=== PATIENT | female | born 1940 | race Caucasian/White ===

== ENCOUNTER → 2016-07-08 | Outpatient (CLI) | payer MEDICARE, MEDICAID ==
[~2016-07-08] MED LIST: /WARF25TA; ACET65TA; ALLO100T; ALLO100T PO; AMLO10TA2 PO; ASPI1TAB PO; ASPI325T PO; ASPI81TA83; BABY81CH; BISA10SU2; BISA5TA; CALC500T49; CALC600T28 PO; CALCCHW12; CARV3.12 PO; COLA100C2; DILA100C; FURO20TA2 PO; FURO40TA2; GLIP5TAB2; GLIP5TAB8 PO; GLUC500T; GLUC5TAB3; HYDR25TA6; HYDR50TA7; LASI40TA; LEVO100T; LEVO100T5 PO; LOPR50TA; LOVA20TA2 PO; LOVA40TA; METF1000 PO; METF500T PO; MILKSUS; POTA10CA2; POTA20TA PO; PRIN10TA; SPECTROVITE; THERGRAN; TYL; VICO5TAB; VITMTA PO; ZYLO300T
--- NOTE | 2016-07-08 11:43 | REP ---
CT HEAD WITHOUT CONTRAST: HISTORY: Hippocampal lesion. COMPARISON: 08/25/2015. An area of decreased attenuation is present in the right basal ganglia. This represents an old lacunar infarction. Areas of decreased attenuation are present in the periventricular white matter. This represents small vessel ischemic disease. Increased density is present in the right hippocampus that is unchanged compared to the previous study. There is no mass effect on the temporal horn of the right lateral ventricle. The ventricular system and cortical sulci are dilated consistent with minimal volume loss. There is no extracerebral collection. Mucosal thickening is present in the ethmoid sinuses. IMPRESSION: 1. Old right basal ganglia lacunar infarction. 2. Small vessel ischemic disease. 3. Minimal volume loss. 4. There is increased density in the right hippocampus, unchanged compared to the previous study. This represents calcification, hemosiderin or possibly a cavernous hemangioma. Signed by Bryant Ann MD 07/08/2016 12:06 P
== END ==
LOC: M RAD 11:00
PROVIDERS: ATTEND Psychiatry & Neurology Neurology
DX: G93.9 Disorder of brain, unspecified (principal)

== ENCOUNTER → 2016-07-15 | Outpatient (REF) | payer MEDICARE, MEDICAID | LOC: M SFHCADAM 11:16 | PROVIDERS: ATTEND Family Medicine | DX: E11.9 Type 2 diabetes mellitus without complications (principal) | CPT/HCPCS: 82043; 83036; G0463 ==

== ENCOUNTER → 2016-08-11 | Outpatient (CLI) | payer MEDICARE, MEDICAID ==
[2016-08-11 10:13] LABS: CALCIUM LEVEL 9.7 MG/DL (8.8-10.2); CREATININE FOR GFR 1.94 MG/DL (0.55-1.02); GLOMERULAR FILTRATION RATE 26.8 (>39)
== END ==
LOC: M LAB 09:27
PROVIDERS: ATTEND Urology
DX: C64.1 Malignant neoplasm of right kidney, except renal pelvis (principal)

== ENCOUNTER → 2016-10-12 | Outpatient (CLI) | payer MEDICARE, MEDICAID | LOC: M LAB 09:10 | PROVIDERS: ATTEND Family Medicine | DX: E11.9 Type 2 diabetes mellitus without complications (principal) ==

== ENCOUNTER → 2016-12-31 | Outpatient (CLI) | payer MEDICARE, MEDICAID ==
[~2016-12-31] MED LIST changes: -METF1000 PO; +METF10004 PO; -METF500T PO; +METF500T13 PO
[2016-12-31 08:45] LABS: ALBUMIN 3.7 GM/DL (3.2-5.2); ALBUMIN/GLOBULIN RATIO 1.23 (1.00-1.93); BILIRUBIN,TOTAL 0.5 MG/DL (0.2-1.0); CREATININE FOR GFR 1.7 MG/DL (0.55-1.02); GLOMERULAR FILTRATION RATE 31.2 (>39); POTASSIUM SERUM 4.4 MEQ/L (3.5-5.1); TOTAL PROTEIN 6.7 GM/DL (6.4-8.2)
== END ==
LOC: M LAB 07:56
PROVIDERS: ATTEND Physician Assistant
DX: I50.32 Chronic diastolic (congestive) heart failure (principal); E78.00 Pure hypercholesterolemia, unspecified

== ENCOUNTER → 2017-01-24 | Outpatient (REF) | payer MEDICARE, MEDICAID | LOC: M SFHCADAM 10:24 | PROVIDERS: ATTEND Family Medicine | DX: E11.9 Type 2 diabetes mellitus without complications (principal) ==

== ENCOUNTER → 2017-02-14 | Outpatient (CLI) | payer MEDICARE, MEDICAID ==
[2017-02-14 12:18] LABS: CALCIUM LEVEL 8.6 MG/DL (8.8-10.2); CREATININE FOR GFR 1.84 MG/DL (0.55-1.02); GLOMERULAR FILTRATION RATE 28.5 (>39); POTASSIUM SERUM 4.3 MEQ/L (3.5-5.1)
== END ==
LOC: M LAB 09:58
PROVIDERS: ATTEND Urology
DX: C64.1 Malignant neoplasm of right kidney, except renal pelvis (principal)

== ENCOUNTER → 2017-04-01 | Outpatient (REF) | payer MEDICARE, MEDICAID ==
[2017-04-01 13:44] LABS: ALBUMIN 4.1 GM/DL (3.2-5.2); CALCIUM LEVEL 9.4 MG/DL (8.8-10.2); CREATININE FOR GFR 1.87 MG/DL (0.55-1.02); GLOMERULAR FILTRATION RATE 27.9 (>39); PHOSPHORUS LEVEL 2.9 MG/DL (2.5-4.9)
== END ==
LOC: M LAB REF 12:53
PROVIDERS: ATTEND Physician Assistant
DX: I50.32 Chronic diastolic (congestive) heart failure (principal)

== ENCOUNTER → 2017-05-09 | Outpatient (REF) | payer MEDICARE, MEDICAID | LOC: M SFHCADAM 09:35 | PROVIDERS: ATTEND Family Medicine | DX: E11.9 Type 2 diabetes mellitus without complications (principal) ==

== ENCOUNTER → 2017-07-06 | Outpatient (REF) | payer MEDICARE, MEDICAID ==
[2017-07-06 12:54] LABS: ALBUMIN 4.4 GM/DL (3.2-5.2); ALBUMIN/GLOBULIN RATIO 1.42 (1.00-1.93); ALKALINE PHOSPHATASE 93 U/L (45-117); ALT/SGPT 18 U/L (12-78); ANION GAP 6 MEQ/L (8-16); AST/SGOT 14 U/L (7-37); BILIRUBIN,TOTAL 0.4 MG/DL (0.2-1.0); BLOOD UREA NITROGEN 36 MG/DL (7-18); CALCIUM LEVEL 9.5 MG/DL (8.8-10.2); CARBON DIOXIDE LEVEL 32 MEQ/L (21-32); CHLORIDE LEVEL 101 MEQ/L (98-107); CREATININE FOR GFR 1.94 MG/DL (0.55-1.02); GLOMERULAR FILTRATION RATE 26.7 (>39); GLUCOSE, FASTING 131 MG/DL (83-110); POTASSIUM SERUM 4.6 MEQ/L (3.5-5.1); SODIUM LEVEL 139 MEQ/L (136-145); TOTAL PROTEIN 7.5 GM/DL (6.4-8.2)
== END ==
LOC: M LABDRWAD 12:27
DX: I50.32 Chronic diastolic (congestive) heart failure (principal); E78.00 Pure hypercholesterolemia, unspecified
CPT/HCPCS: 80053

== ENCOUNTER → 2017-07-14 | Outpatient (CLI) | payer MEDICARE, MEDICAID | LOC: M ADAMS 13:27 | DX: M17.12 Unilateral primary osteoarthritis, left knee (principal) | CPT/HCPCS: 73564 ==

== ENCOUNTER → 2017-08-12 | Outpatient (REF) | payer MEDICARE, MEDICAID ==
[2017-08-12 20:10] LABS: ESTIMATED AVERAGE GLUCOSE 143 MG/DL (60-110); HEMOGLOBIN A1c 6.6 %
== END ==
LOC: M SFHCADAM 19:30
DX: E11.9 Type 2 diabetes mellitus without complications (principal)
CPT/HCPCS: 83036

== ENCOUNTER → 2017-10-11 | Outpatient (CLI) | payer MEDICARE, MEDICAID | LOC: M RAD 12:45 | DX: I63.8 Other cerebral infarction (principal); I73.9 Peripheral vascular disease, unspecified; L98.9 Disorder of the skin and subcutaneous tissue, unspecified | CPT/HCPCS: 70450 ==

== ENCOUNTER → 2017-11-02 | Outpatient (REF) | payer MEDICARE, MEDICAID ==
[2017-11-02 12:54] LABS: BASO # 0.1 10^3/uL (0.0-0.2); BASO % 0.6 % (0.0-1.0); EOS # 0.2 10^3/uL (0.0-0.50); HEMATOCRIT 38.9 % (36.0-47.0); HEMOGLOBIN 12.5 g/dl (12.0-15.5); IMMATURE GRANULOCYTE % 0.6 % (0-3.0); LYMPH % 24.8 % (24.0-44.0); MEAN CORPUSCULAR HGB CONC 32.1 g/dl (32.0-36.5); MEAN CORPUSCULAR VOLUME 90.3 fl (80.0-96.0); MONO # 0.7 10^3/uL (0.0-0.8); MONO % 8.5 % (0.0-5.0); NEUTROPHILS % 62.5 % (36.0-66.0); PLATELET COUNT, AUTOMATED 193 10^3/uL (150-450); RED BLOOD COUNT 4.31 10^6/uL (4.00-5.40); RED CELL DISTRIBUTION WIDTH 13.2 % (11.5-14.5)
[2017-11-02 13:24] LABS: ALBUMIN 4.1 GM/DL (3.2-5.2); ALBUMIN/GLOBULIN RATIO 1.21 (1.00-1.93); ALKALINE PHOSPHATASE 88 U/L (45-117); ALT/SGPT 19 U/L (12-78); ANION GAP 6 MEQ/L (8-16); AST/SGOT 15 U/L (7-37); BILIRUBIN,TOTAL 0.5 MG/DL (0.2-1.0); BLOOD UREA NITROGEN 34 MG/DL (7-18); CALCIUM LEVEL 9.4 MG/DL (8.8-10.2); CARBON DIOXIDE LEVEL 32 MEQ/L (21-32); CHLORIDE LEVEL 104 MEQ/L (98-107); CREATININE FOR GFR 1.83 MG/DL (0.55-1.30); GLOMERULAR FILTRATION RATE 28.6 (>39); GLUCOSE, FASTING 125 MG/DL (70-100); POTASSIUM SERUM 4.5 MEQ/L (3.5-5.1); SODIUM LEVEL 142 MEQ/L (136-145); TOTAL PROTEIN 7.5 GM/DL (6.4-8.2)
[2017-11-02 13:56] LABS: ESTIMATED AVERAGE GLUCOSE 146 MG/DL (60-110); HEMOGLOBIN A1c 6.7 %
== END ==
LOC: M SFHCADAM 10:00
DX: E11.9 Type 2 diabetes mellitus without complications (principal)
CPT/HCPCS: 80053

== ENCOUNTER → 2017-12-30 | Outpatient (CLI) | payer MEDICARE, MEDICAID | LOC: M ADAMS 13:18 | DX: M79.651 Pain in right thigh (principal) | CPT/HCPCS: 73552 ==

== ENCOUNTER → 2018-02-03 | Outpatient (REF) | payer MEDICARE, MEDICAID ==
[2018-02-03 19:16] LABS: ALBUMIN 4.2 GM/DL (3.2-5.2); ALBUMIN/GLOBULIN RATIO 1.24 (1.00-1.93); ALKALINE PHOSPHATASE 109 U/L (45-117); ALT/SGPT 18 U/L (12-78); ANION GAP 6 MEQ/L (8-16); AST/SGOT 15 U/L (7-37); BILIRUBIN,TOTAL 0.3 MG/DL (0.2-1.0); BLOOD UREA NITROGEN 41 MG/DL (7-18); CALCIUM LEVEL 9.2 MG/DL (8.8-10.2); CARBON DIOXIDE LEVEL 33 MEQ/L (21-32); CHLORIDE LEVEL 104 MEQ/L (98-107); CREATININE FOR GFR 1.91 MG/DL (0.55-1.30); GLOMERULAR FILTRATION RATE 27.2 (>39); GLUCOSE, FASTING 149 MG/DL (70-100); POTASSIUM SERUM 3.9 MEQ/L (3.5-5.1); SODIUM LEVEL 143 MEQ/L (136-145); TOTAL PROTEIN 7.6 GM/DL (6.4-8.2)
[2018-02-03 19:22] LABS: ESTIMATED AVERAGE GLUCOSE 134 MG/DL (60-110); HEMOGLOBIN A1c 6.3 %
== END ==
LOC: M LABDRWAD 18:39
DX: E11.9 Type 2 diabetes mellitus without complications (principal)
CPT/HCPCS: 80053

== ENCOUNTER → 2018-02-27 | Outpatient (REF) | payer MEDICARE, MEDICAID ==
[2018-02-27 22:13] LABS: ANION GAP 7 MEQ/L (8-16); BLOOD UREA NITROGEN 32 MG/DL (7-18); CALCIUM LEVEL 9.5 MG/DL (8.8-10.2); CARBON DIOXIDE LEVEL 32 MEQ/L (21-32); CHLORIDE LEVEL 100 MEQ/L (98-107); CREATININE FOR GFR 1.77 MG/DL (0.55-1.30); GLOMERULAR FILTRATION RATE 29.7 (>39); GLUCOSE, FASTING 126 MG/DL (70-100); SODIUM LEVEL 139 MEQ/L (136-145); TRIGLYCERIDES LEVEL 172 MG/DL (<150)
[2018-02-27 23:25] LABS: CHOLESTEROL LEVEL 171 MG/DL (<200); CHOLESTEROL RISK RATIO 4.071 (<5); HDL CHOLESTEROL 42 MG/DL (>40); LDL CHOLESTEROL 94.6 MG/DL (<100); NON-HDL-C 129 MG/DL
== END ==
LOC: M LABDRWAD 12:21
DX: I50.32 Chronic diastolic (congestive) heart failure (principal); E78.00 Pure hypercholesterolemia, unspecified
CPT/HCPCS: 80061

== ENCOUNTER → 2018-03-08 | Outpatient (REF) | payer MEDICARE, MEDICAID ==
[2018-03-08 14:13] LABS: ANION GAP 10 MEQ/L (8-16); BLOOD UREA NITROGEN 31 MG/DL (7-18); CALCIUM LEVEL 9.3 MG/DL (8.8-10.2); CARBON DIOXIDE LEVEL 30 MEQ/L (21-32); CHLORIDE LEVEL 99 MEQ/L (98-107); CREATININE FOR GFR 1.76 MG/DL (0.55-1.30); GLOMERULAR FILTRATION RATE 29.9 (>39); GLUCOSE, FASTING 104 MG/DL (70-100); POTASSIUM SERUM 3.9 MEQ/L (3.5-5.1); SODIUM LEVEL 139 MEQ/L (136-145)
== END ==
LOC: M LABDRWAD 12:31
DX: N28.89 Other specified disorders of kidney and ureter (principal)
CPT/HCPCS: 80048

== ENCOUNTER → 2018-05-29 | Outpatient (REF) | payer MEDICARE, MEDICAID ==
[2018-05-29 13:00] LABS: ANION GAP 5 MEQ/L (8-16); BLOOD UREA NITROGEN 33 MG/DL (7-18); CALCIUM LEVEL 8.9 MG/DL (8.8-10.2); CARBON DIOXIDE LEVEL 29 MEQ/L (21-32); CHLORIDE LEVEL 104 MEQ/L (98-107); CREATININE FOR GFR 1.58 MG/DL (0.55-1.30); GLOMERULAR FILTRATION RATE 33.8 (>39); GLUCOSE, FASTING 123 MG/DL (70-100); POTASSIUM SERUM 5.1 MEQ/L (3.5-5.1); SODIUM LEVEL 138 MEQ/L (136-145)
== END ==
LOC: M LABDRWAD 12:28
DX: I50.32 Chronic diastolic (congestive) heart failure (principal)
CPT/HCPCS: 80048

== ENCOUNTER → 2018-07-28 | Outpatient (REF) | payer MEDICARE, MEDICAID ==
[~2018-07-28] MED LIST changes: -AMLO10TA2 PO; +AMLO10TA5 PO; +KLOR20TA42 PO; -POTA20TA PO
[2018-07-28 15:28] LABS: HEMOGLOBIN A1c 6.4 %
== END ==
LOC: M LABDRWAD 12:25
PROVIDERS: ATTEND Family Medicine
DX: E11.69 Type 2 diabetes mellitus with other specified complication (principal)

== ENCOUNTER → 2018-11-16 | Outpatient (REF) | payer MEDICARE, MEDICAID ==
[~2018-11-16] MED LIST changes: -/WARF25TA; +ASPI-1 PO; -ASPI1TAB PO; -ASPI325T PO; +ASPI81TA26 PO; +COUM1TAB18
[2018-11-16 18:38] LABS: HEMOGLOBIN A1c 6.3 %
== END ==
LOC: M SFHCADAM 15:11
PROVIDERS: ATTEND Family Medicine
DX: E11.9 Type 2 diabetes mellitus without complications (principal)
CPT/HCPCS: 83036; G0463

== ENCOUNTER → 2018-11-16 | Outpatient (CLI) | payer MEDICARE ==
--- NOTE | 2018-11-16 16:16 | REP ---
Clinical: Left knee pain. Technique: AP, lateral, bilateral oblique and sunrise views of the left knee. Findings: Age-related osteopenia and advanced tricompartmental osteoarthritic degenerative changes are appreciated including periarticular and subchondral sclerosis, joint space narrowing, osteophytosis, and chondrocalcinosis. No acute fracture dislocation. No definite effusion. Impression: Advanced tricompartmental osteoarthritic degenerative changes. Electronically Signed by Tito Mei MD 11/16/2018 04:08 P
== END ==
LOC: M ADAMS 15:17 → M WHC 15:17
PROVIDERS: ATTEND Family Medicine
DX: M17.12 Unilateral primary osteoarthritis, left knee (principal); M25.562 Pain in left knee

== ENCOUNTER 2018-12-25 16:45 | Emergency (ER) | payer MEDICARE ==
[~2018-12-25] VITALS: Ht 152.4 cm; Wt 85.9 kg
[2018-12-25 20:15] LABS: HEMATOCRIT 41.8 % (36.0-47.0); HEMOGLOBIN 13.7 g/dl (12.0-15.5); MEAN CORPUSCULAR HGB CONC 32.8 g/dl (32.0-36.5); MEAN CORPUSCULAR VOLUME 91.5 fl (80.0-96.0); PLATELET COUNT, AUTOMATED 203 10^3/uL (150-450); RED BLOOD COUNT 4.57 10^6/uL (4.00-5.40); WHITE BLOOD COUNT 8.8 10^3/uL (4.0-10.0)
[2018-12-25] MEDS ORDERED: NS 500 ML IV ONE (21:45)
[2018-12-25] MEDS ORDERED: IBUPROFEN 600 MG TAB PO ONE (21:45)
[2018-12-25] MEDS ORDERED: AMLO5TAB6 PO (21:52)
[2018-12-25] MEDS ORDERED: LEVO75TA4 PO (21:52)
[2018-12-25] MEDS ORDERED: AMIL5TAB4 PO (21:52)
[2018-12-25] MEDS ORDERED: ATOR1TAB19 PO (21:52)
--- NOTE | 2018-12-25 21:57 | REPVR ---
EXAM: CT Abdomen and Pelvis Without Contrast EXAM DATE/TIME: 12/25/2018 8:59 PM CLINICAL HISTORY: 78 years old, female; Abdominal pain; Flank; Left; Additional info: RO kidney stone TECHNIQUE: Imaging protocol: Axial computed tomography images of the abdomen and pelvis without contrast. Coronal and sagittal reformatted images were created and reviewed. Radiation optimization: All CT scans at this facility use at least one of these dose optimization techniques: automated exposure control; mA and/or kV adjustment per patient size (includes targeted exams where dose is matched to clinical indication); or iterative reconstruction. COMPARISON: CT ABD PELVIS W/O CONTRAST 07/15/2015 1:14 PM FINDINGS: Tubes, catheters and devices: Pacemaker in position. Mediastinum: Minimal hiatal hernia. Liver: Normal. No mass. Gallbladder and bile ducts: There are multiple gallstones in the gallbladder. Pancreas: Normal. No ductal dilation. Spleen: Normal. No splenomegaly. Adrenals: Normal. No mass. Kidneys and ureters: Nonobstructing left renal calculi. Absent right kidney. No hydronephrosis and no ureteral UVJ calculi on the left. Stomach and bowel: There is colonic diverticulosis without evidence of diverticulitis. Appendix: A normal small appendix is seen. Intraperitoneal space: Normal. No free air. No significant fluid collection. Vasculature: There is minimal atherosclerotic calcification of the abdominal aorta. Lymph nodes: Normal. No enlarged lymph nodes. Bladder: Unremarkable as visualized. Reproductive: Uterine enlargement for age measuring 7.6 cm in its AP dimension and may reflect an exophytic uterine fibroid. Bones/joints: Degenerative changes of the lumbar spine with facet arthropathy mild anterolisthesis of L4 relative to L5. There is lower thoracic ankylosis to the L1 level. Mild degenerative changes of the hips bilaterally. Soft tissues: Small fat filled umbilical hernia. IMPRESSION: 1. Interval right nephrectomy since 07/15/2015. 2. Small nonobstructing left renal calculi. No ureteral calculi are evident and there is no evidence of obstructive uropathy. 3. Cholelithiasis 4. Minimal hiatal hernia. 5. Uterine enlargement for age and may reflect an exophytic uterine fibroid. 6. Colonic diverticulosis without diverticulitis. Electronically signed by: Michael Gaviria On 12/25/2018 21:56:57 PM
[2018-12-25 22:20] VITALS: BP 158/74
--- NOTE | 2018-12-25 23:37 | REP ---
Clinical: Decreased left-sided breath sounds Comparison: 09/04/2015. Technique: PA and lateral. Findings: The mediastinum and cardiac silhouette are normal. The lung navarro are clear and without acute consolidation, effusion, or pneumothorax. The skeletal structures are intact and normal. Impression: 1. No acute cardiopulmonary process. Electronically Signed by Tito Mei MD 12/25/2018 11:29 P
== END 2018-12-25 22:29 | disposition home or self-care (01) ==
LOC: M ED 16:45
DX: N20.0 Calculus of kidney (principal); K80.50 Calculus of bile duct without cholangitis or cholecystitis without obstruction; K57.30 Diverticulosis of large intestine without perforation or abscess without bleeding; K44.9 Diaphragmatic hernia without obstruction or gangrene; E11.9 Type 2 diabetes mellitus without complications; I10 Essential (primary) hypertension; E78.5 Hyperlipidemia, unspecified; M19.90 Unspecified osteoarthritis, unspecified site; M54.9 Dorsalgia, unspecified; E03.9 Hypothyroidism, unspecified; Z86.73 Personal history of transient ischemic attack (TIA), and cerebral infarction without residual deficits; R56.9 Unspecified convulsions; M10.9 Gout, unspecified; Z85.528 Personal history of other malignant neoplasm of kidney; Z95.0 Presence of cardiac pacemaker; Z79.82 Long term (current) use of aspirin; Z79.84 Long term (current) use of oral hypoglycemic drugs; Z79.899 Other long term (current) drug therapy

== ENCOUNTER → 2019-01-05 | Outpatient (CLI) | payer MEDICARE, MEDICAID ==
[~2019-01-05] MED LIST changes: +AMIL5TAB4 PO; +AMLO5TAB6 PO; +ATOR1TAB19 PO; +LEVO75TA4 PO
--- NOTE | 2019-01-05 12:57 | REP ---
Lumbar spine series: Five views. History: Low back pain. Findings: Lumbar vertebral body heights are preserved. No fracture or collapse is seen. There is no evidence of spondylolysis. There is however a degenerative grade 1 L4-5 spondylolisthesis visible measuring 8 mm in diameter. This is due to degenerative disc disease and severe osteoarthritic facet disease bilaterally at L4-5. There is osteoarthritic facet disease moderate in degree at L3-4 and at L5-S1. Advanced degenerative disc disease is seen in the remaining lumbar spine levels. The L2-3 disc is narrowed and there are well established osteophytes anteriorly. There are flowing fused osteophytes in the lower thoracic and upper lumbar levels including the T12-L1 level. No bony destructive lesion is seen. Vascular calcification is observed. Impression: Advanced degenerative spondylosis changes. 8 mm grade 1 degenerative L4-5 spondylolisthesis. Electronically Signed by Roel Mayer MD 01/05/2019 01:28 P
== END ==
LOC: M ADAMS 10:19
PROVIDERS: ATTEND Family Medicine
DX: M43.16 Spondylolisthesis, lumbar region (principal); M51.36 Other intervertebral disc degeneration, lumbar region; M25.78 Osteophyte, vertebrae; M54.5 Low back pain
CPT/HCPCS: 72110; G0463

== ENCOUNTER → 2019-01-05 | Outpatient (CLI) | payer MEDICARE, MEDICAID | LOC: M CLY 10:15 | PROVIDERS: ATTEND Family Medicine | DX: M54.5 Low back pain (principal); Z53.8 Procedure and treatment not carried out for other reasons ==

== ENCOUNTER → 2019-04-04 | Outpatient (REF) | payer MEDICARE, MEDICAID ==
[2019-04-04 12:59] LABS: ALBUMIN 3.9 GM/DL (3.2-5.2); BILIRUBIN,TOTAL 0.5 MG/DL (0.2-1.0); CREATININE FOR GFR 1.81 MG/DL (0.55-1.30); GLOMERULAR FILTRATION RATE 28.9 (>39); POTASSIUM SERUM 4.7 MEQ/L (3.5-5.1); TOTAL PROTEIN 7.1 GM/DL (6.4-8.2)
[2019-04-04 13:21] LABS: HEMOGLOBIN A1c 6.3 %
== END ==
LOC: M SFHCADAM 09:49
PROVIDERS: ATTEND Family Medicine
DX: E11.9 Type 2 diabetes mellitus without complications (principal)
CPT/HCPCS: 80053; 83036; 90682; G0008; G0463

== ENCOUNTER → 2019-05-29 | Outpatient (REF) | payer MEDICARE, MEDICAID ==
[2019-05-29 14:08] LABS: ALBUMIN 3.9 GM/DL (3.2-5.2); BILIRUBIN,TOTAL 0.4 MG/DL (0.2-1.0); CALCIUM LEVEL 9.3 MG/DL (8.8-10.2); CHOLESTEROL RISK RATIO 3.28 (<5); CREATININE FOR GFR 1.69 MG/DL (0.55-1.30); GLOMERULAR FILTRATION RATE 31.2 (>39); POTASSIUM SERUM 4.7 MEQ/L (3.5-5.1)
== END ==
LOC: M LABDRWAD 12:56
PROVIDERS: ATTEND Physician Assistant
DX: I50.32 Chronic diastolic (congestive) heart failure (principal); E78.00 Pure hypercholesterolemia, unspecified

== ENCOUNTER → 2019-07-25 | Outpatient (CLI) | payer MEDICARE, MEDICAID ==
--- NOTE | 2019-07-26 15:01 | REP ---
Clinical: Peripheral artery disease . Technique: Garcia scale and color Doppler evaluation using linear high frequency transducer Findings: The bilateral carotid arteries appear somewhat tortuous. Two-dimensional garcia scale and color images demonstrate intimal thickening with normal laminar flow and no appreciable narrowing. Color Doppler interrogation demonstrates normal arterial wave patterns and velocities with no significant spectral broadening. Normal flow direction is appreciated in the bilateral vertebral arteries. RIGHT (cm/s) LEFT (cm/s) ICA peak systolic velocity 55.0 48.0 ICA diastolic velocity 21.6 12.7 ECA peak systolic velocity 62.2 64.8 CCA peak systolic velocity 103.0 69.1 ICA/CCA ratio 0.53 0.69 Impression: No hemodynamically significant areas of narrowing or stenosis appreciated. Based on set standards narrowing falls within the less than 50% range. Electronically Signed by Tito Mei MD 07/26/2019 02:52 P
== END ==
LOC: M RAD 12:50
PROVIDERS: ATTEND Family Medicine
DX: I65.23 Occlusion and stenosis of bilateral carotid arteries (principal)

== ENCOUNTER → 2019-07-30 | Outpatient (REF) | payer MEDICARE, MEDICAID ==
[2019-07-30 17:20] LABS: HEMOGLOBIN A1c 6.6 %
== END ==
LOC: M SFHCADAM 13:35
PROVIDERS: ATTEND Family Medicine
DX: E11.69 Type 2 diabetes mellitus with other specified complication (principal)

== ENCOUNTER 2019-10-14 09:53 | Inpatient (IN) | payer MEDICARE, MEDICAID ==
--- NOTE | 2019-10-14 10:25 | ECGEPIP ---
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
[2019-10-14 10:45] LABS: BASO # 0.1 10^3/uL (0.0-0.2); BASO % 0.5 % (0.0-1.0); EOS # 0.2 10^3/uL (0.0-0.5); EOS % 0.8 % (0.0-3.0); HEMATOCRIT 39.8 % (36.0-47.0); LYMPH # 3.5 10^3/uL (1.5-5.0); LYMPH % 16.6 % (24.0-44.0); MEAN CORPUSCULAR HEMOGLOBIN 29.3 pg (27.0-33.0); MEAN CORPUSCULAR HGB CONC 32.7 g/dl (32.0-36.5); MEAN CORPUSCULAR VOLUME 89.6 fl (80.0-96.0); MONO % 4.7 % (0.0-5.0); NEUTROPHILS # 16.2 10^3/uL (1.5-8.5); NEUTROPHILS % 76.3 % (36.0-66.0); PLATELET COUNT, AUTOMATED 196 10^3/uL (150-450); RED BLOOD COUNT 4.44 10^6/uL (4.00-5.40); WHITE BLOOD COUNT 21.2 10^3/uL (4.0-10.0)
[2019-10-14] MEDS ORDERED: levETIRAcetam INJection 500 MG in D5W MINI-BAG PLUS 100 ML IV ONE (10:45)
[2019-10-14] MEDS ORDERED: SUCCINYLCHOLINE INJ 200 MG/10 ML VIAL (J0330) IV STA (10:46)
[2019-10-14] MEDS ORDERED: ETOMIDATE INJ 20MG/10ML VIAL IV STA (10:46)
[2019-10-14] MEDS ORDERED: PROPOFOL 1,000 MG/100 ML VIAL As Ordered ONE (10:51)
--- NOTE | 2019-10-14 10:54 | REP ---
CT BRAIN WITHOUT CONTRAST: CT brain performed without IV contrast. Coronal reconstruction images are performed. There is a very large parenchymal hemorrhage in the right cerebral hemisphere in the epicenter in the right temporoparietal region. There is a subdural component in the right temporal region. The hemorrhage extends to the midline. Petechial hemorrhages are seen more superiorly, anterior to the frontal horns of the lateral ventricles and along the superior aspect of the right lateral ventricle. There is significant associated edema of the right cerebral hemisphere with diffuse effacement of sulci. There is significant shift of the midline structures to the left approximately 1.8 cm. There is significant compression of the ventricular system. There is mild dilatation of the temporal horns of the lateral ventricles bilaterally. There is evidence for some falcine, transtentorial and uncal herniation. No skull fracture is seen. IMPRESSION: Large intraparenchymal hemorrhage in the right cerebral hemisphere with subdural component in the right temporal region. Epicenter of the large intraparenchymal hemorrhage is in the temporoparietal region. There is significant associated edema and significant midline shift to the left. Ventricular system is significant compressed, with dilatation of the temporal horns of the lateral ventricles. There is evidence for transtentorial, uncal and subfalcine herniation. The findings were relayed to Dr. Ruiz in the emergency room by telephone at the time of the exam. Electronically Signed by Artem Garcia MD 10/14/2019 09:52 P
[2019-10-14 10:55] LABS: INR 0.94; PROTHROMBIN TIME 12.2 SECONDS (11.8-14.0)
--- NOTE | 2019-10-14 10:58 | REP ---
CT CERVICAL SPINE: CT cervical spine performed in the axial plane. Sagittal and coronal reconstruction images are performed. There is no fracture or dislocation. Vertebral bodies are normal in height and are well aligned. Nasopharyngeal tube is seen. The tip is seen at the C2 level. There is mild spurring diffusely. There is moderate disc space narrowing at C5-6 and C6-7. There is facet spurring diffusely. There appears to be at least mild spinal stenosis and foraminal narrowing at C5-6 and C6-7. There is a focal nodular opacity in the posterior right upper hemithorax, which represents subpleural fat, measuring about 3 cm in maximum diameter. IMPRESSION: Degenerative changes without fracture or dislocation. Electronically Signed by Artem Garcia MD 10/14/2019 09:52 P
[2019-10-14] MEDS: propofoL 1,000 MG in IV 1 EA IV SCH ×2 (11:05→11:30)
[2019-10-14] MEDS ORDERED: LABETALOL 100MG/20ML VIAL IV STA (11:06)
[2019-10-14 11:13] LABS: OSMOLALITY SERUM 309 MOSM/KG (280-301)
[2019-10-14 11:20] LABS: ACETAMINOPHEN LEVEL < 2.0 UG/ML (10.0-30.0); ALBUMIN 3.9 GM/DL (3.2-5.2); ALT/SGPT 19 U/L (12-78); BILIRUBIN,DIRECT < 0.1 MG/DL (0.0-0.2); BILIRUBIN,TOTAL 0.5 MG/DL (0.2-1.0); BLOOD UREA NITROGEN 28 MG/DL (7-18); CALCIUM LEVEL 9.1 MG/DL (8.8-10.2); CARBON DIOXIDE LEVEL 23 MEQ/L (21-32); CHLORIDE LEVEL 105 MEQ/L (98-107); CK-MB VALUE MASS 2.5 NG/ML (<3.6); CPK CREATINE PHOSPHOKINASE 201 U/L (26-192); CREATININE FOR GFR 1.65 MG/DL (0.55-1.30); ETHYL ALCOHOL (ETHANOL) < 0.003 % (0.000-0.010); GLUCOSE, FASTING 227 MG/DL (70-100); MB/CK RELATIVE INDEX 1.24 (< OR =4); POTASSIUM SERUM 4.9 MEQ/L (3.5-5.1); SALICYLATE LEVEL < 1.7 MG/DL (5.0-30.0); SODIUM LEVEL 138 MEQ/L (136-145); TOTAL PROTEIN 7.3 GM/DL (6.4-8.2); TROPONIN I < 0.02 NG/ML (< 0.10)
[2019-10-14] MEDS ORDERED: MANNITOL 25% 12.5 GM/50 ML VIAL (J2150) IV ONE (11:30)
[2019-10-14] MEDS ORDERED: hydrALAZINE 20MG/ML 1ML VIAL (J0360 PER 20MG) IV STA (11:32)
[2019-10-14 11:35] VITALS: BP 177/78
[2019-10-14] MEDS ORDERED: JANU25TA PO (11:58)
[2019-10-14] MEDS ORDERED: CALC1CAP31 PO (11:58)
[2019-10-14] MEDS ORDERED: AMLO5TAB6 PO (11:58)
[2019-10-14] MEDS ORDERED: ASPI81TA24 PO (11:58)
--- NOTE | 2019-10-14 12:03 | REP ---
CHEST, SINGLE VIEW: Single view of the chest is performed. There is no acute infiltrate. Cardiac silhouette is mildly prominent. Left pacemaker is noted. There is an endotracheal tube and the tip appears to be about 5 mm above the leida. Nasogastric tube traverses into the stomach. Electronically Signed by Artem Garcia MD 10/14/2019 09:56 P
--- NOTE | 2019-10-14 12:12 | HPEPDOC ---
[facility] Medical History & Physical Date of Admission Oct 14, 2019 Date of Service: Oct 14, 2019 Attending Physician: Christina Black MD History and Physical CHIEF COMPLAINT: Unresponsive at home HISTORY OF PRESENT ILLNESS: The patient is a 79-year-old female with past medical history of gout, hyper tension, coronary artery disease, hyperlipidemia, hypothyroidism, diabetes mellitus type 2, seizure history who presented to [facility] on 10/14/2019 tripping found unresponsive on the floor at her home at the bottom of the stairs. Her brother was the one who found her at her home. It is unknown as to when she was last seen normal. As per her brother, she was found unresponsive with snoring respirations and decorticate posturing. 911 was called. The patient was noted to have spontaneous respirations and a Joaquina Coma Scale of 1:3:1. The patient was brought to [facility] for further evaluation. Upon arrival to the emergency room the patient was found to be posturing. CT of the head showed a large intraparenchymal hemorrhage. Family was notified and initially wanted to send the patient to [facility] for further stroke treatment. The patient was intubated and started on paralytic medication. The ER attending discussed the case with neurology ICU doctor at [facility], Dr. Denis, who felt this patient would have an overall poor prognosis. The neurologist ICU doctor then spoke with the patient's daughter Lashell, her healthcare proxy. Lashell later made the patient COMPUTER ENGINEERING TECHNOLOGIST status. The patient's intubation tube was pulled 11:50 AM and made comfort measures. On evaluation of the patient, the patient had decorticate posturing. Her pupils were fixed and dilated at 4 mm. She was unresponsive to painful stimuli, loud focal stimuli. I spoke with her healthcare proxy and daughter Lashell who confirmed again that the patient was to be COMPUTER ENGINEERING TECHNOLOGIST status, a MOLST form was filled out indicating such. Patient was admitted under inpatient status for hemorrhagic CVA, comfort measures only. REVIEW OF SYSTEMS: Unable to obtain PAST MEDICAL HISTORY: 1. Gout 2. HTN 3. Coronary artery disease 4. HLD 5. Hypothyroidism 6. DM type II 7. Seizure history 8. History of kidney cancer PAST SURGICAL HISTORY: 1. Total knee replacement 2. Dual-chamber pacemaker placement 3. Polypectomy 4. Cataract surgery FAMILY HISTORY: Father: Colon cancer. at unknown age Mother: Stroke. in her 90s SOCIAL HISTORY: No known smoking, alcohol or drug history. Currently comfort measures only. ALLERGIES: Please see below. HOME MEDICATIONS: Please see below. PHYSICAL EXAMINATION: CONSTITUTIONAL: Unresponsive, in no distress. EYES: Pupils are fixed and dilated at 4 mm bilaterally HENT, MOUTH: Small amount of blood on the tongue, multiple small bruises underneath tongue. Normocephalic, atraumatic, moist mucous membranes NECK: SUPPLE, no JVD, no lymphadenopathy, no carotid bruit CV: Regular rate and rhythm, S1S2 normal, no murmurs/rubs/gallops RESPIRATORY: Clear to auscultation bilaterally, no rales/rhonchi/wheezes GI: Obese abdomen, BS positive in 4 quadrants, soft, nontender, nondistended, no rebound or guarding, no organomegaly : Bradshaw catheter in place MUSCULOSKELETAL: No cyanosis, clubbing, swelling, joint deformity, extremity edema INTEGUMENTARY: Large vertical scar over the right knee, well-healed. Bruise on the left upper extremity shoulder. Intact, no rashes, no lesions, no erythema NEUROLOGIC: Decorticate posturing, pupils fixed and dilated 4 mm, GCS 1 PSYCHIATRIC: Mood and affect are normal LABORATORY DATA: Please see below IMAGING: CT head: Large intraparenchymal hemorrhage in the right cerebral hemisphere with subdural component in the right temporal region. Epicenter of the large intraparenchymal hemorrhage is in the temporoparietal region. There is significant associated edema and significant midline shift to the left. Ventricular system is significant compressed with dilatation of the temporal horns of the lateral ventricles. There is evidence for transtentorial, uncal and subfalcine herniation. DIAGNOSES: 1. Intracerebral hemorrhage with brain compression and coma 2. Seizures status post hemorrhagic CVA 3. Acute kidney injury 4. Hyperammonemia 5. Gout 6. Hypertension 7. Coronary artery disease 8. Hypothyroidism 9. Diabetes mellitus type 2 10. Hyperlipidemia ASSESSMENT/PLAN: Patient is a 79-year-old female admitted under inpatient status post hemorrhagic CVA, currently comfort measures only. Her healthcare proxy (daughter Lashell Mario) lives 3 hours away and will be here to see her on 10/15/2019. Neurologist in the ICU at [facility] did not think the person had much time left to live given the size and severity of the hemorrhage seen on CT head. I spoke in detail about her critical condition and confirmed COMPUTER ENGINEERING TECHNOLOGIST status with Lashell. No mentioning of hospice during our conversation. Can address in the AM when the patient's family arrives here to see her. Updated MOLST form in chart. Vital Signs Vital Signs Date Time Temp Pulse Resp B/P (MAP) Pulse Ox O2 Delivery O2 Flow Rate FiO2 10/14/19 11:50 145/66 (92) 10/14/19 11:46 60 100 10/14/19 11:16 97.2 14 10/14/19 11:15 30 Laboratory Data Labs 24H Laboratory Tests 2 10/14/19 10:16: POC pH (Misc Panel) 7.347L, POC Base Excess (Misc Panel) -3.0L, POC Saturated Percent O2 (Misc) 100H, POC pO2 (Misc Panel) 290.0H, POC pCO2 (Misc Panel) 41.0, POC HCO3 (Misc Panel) 22.5, POC Total CO2 (Misc Panel) 24.0 10/14/19 10:34: Immature Granulocyte % (Auto) 1.1, Neutrophils (%) (Auto) 76.3H, Lymphocytes (%) (Auto) 16.6L, Monocytes (%) (Auto) 4.7, Eosinophils (%) (Auto) 0.8, Basophils (%) (Auto) 0.5, Neutrophils # (Auto) 16.2H, Lymphocytes # (Auto) 3.5, Monocytes # (Auto) 1.0H, Eosinophils # (Auto) 0.2, Basophils # (Auto) 0.1, Nucleated Red B lood Cells % (auto) 0.0, Prothrombin Time 12.2, Prothromb Time International Ratio 0.94, Activated Partial Thromboplast Time 20.0L, Anion Gap 10, Glomerular Filtration Rate 32.0L, Osmolality 309H, Calcium Level 9.1, Total Bilirubin 0.5, Direct Bilirubin < 0.1, Aspartate Amino Transf (AST/SGOT) 22, Alanine Aminotransferase (ALT/SGPT) 19, Alkaline Phosphatase 96, Ammonia 36H, Total Creatine Kinase 201H, Creatine Kinase MB 2.5, Creatine Kinase MB Relative Index 1.24, Troponin I < 0.02, Total Protein 7.3, Albumin 3.9, Albumin/Globulin Ratio 1.15, Thyroid Stimulating Hormone (TSH) 4.380H, Salicylates Level < 1.7L, Acetaminophen Level < 2.0L, Ethyl Alcohol Level < 0.003 10/14/19 10:37: POC Total CO2 (Misc Panel) 24.0, POC Glucose (Misc Panel) 236H, POC Sodium (Misc Panel) 138, POC Potassium (Misc Panel) 4.7, POC Chloride (Misc Panel) 105, POC Blood Urea Nitrogen (Misc Panel 31H, POC Ionized Calcium (Misc Panel) 4.7, POC Creatinine (Misc Panel) 1.6H, POC Hematocrit (Misc Panel) 41.0 CBC/BMP Laboratory Tests 10/14/19 10:34 Home Medications Scheduled Allopurinol (Allopurinol) 100 Mg Tab, 200 MG PO DAILY Amiloride HCl (Amiloride HCl) 5 Mg Tablet, 5 MG PO DAILY Amlodipine Besylate (Amlodipine Besylate) 5 Mg Tablet, 5 MG PO DAILY Aspirin (Aspirin EC) 81 Mg Tablet.dr, 81 MG PO DAILY Atorvastatin Calcium (Atorvastatin Calcium) 10 Mg Tablet, 10 MG PO DAILY Calcitriol (Calcitriol) 0.25 Mcg Capsule, 0.25 MCG PO 5XW MON THRU FRI Carvedilol (Carvedilol) 3.125 Mg Tab, 3.125 MG PO BID Levothyroxine Sodium (Levothyroxine Sodium) 75 Mcg Tablet, 75 MCG PO DAILY Sitagliptin Phosphate (Januvia) 25 Mg Tablet, 25 MG PO DAILY Allergies Coded Allergies: No Known Allergies (Verified Allergy, Unknown, 12/25/18) A-FIB/CHADSVASC A-FIB History Current/History of A-Fib/PAF?: No Current PO Anticoag Therapy: No Age/Risk Factor Scoring CHADSVASC: CHADSVASC Response (Comments) Value Age Risk Factor Age >/= 75 years old 2 Gender Risk Factor Female 1 Hx of CHF Yes 1 Hx of HTN Yes 1 Hx of Stroke/TIA/or VTE Yes 2 Hx of Diabetes Yes 1 Hx of Vascular Disease No 0 Total 8 Treatment Treatment ordered: NONE (none) Christina Black MD Oct 14, 2019 12:12
[2019-10-14] MEDS ORDERED: SCOPOLAMINE 1MG TRANSDERMAL PATCH TOP PRN (12:15)
[2019-10-14] MEDS ORDERED: MORPHINE 10MG/0.5ML ORAL CONCENTRATE SOLUTION U/D SL PRN (12:15)
[2019-10-14] MEDS ORDERED: LORazepam 2 MG/ML VIAL (J2060) IV PRN (12:15)
[2019-10-14 13:00] VITALS: BP 183/81
[2019-10-14] MEDS ORDERED: LORazepam 2 MG/ML VIAL (J2060) IV STA (13:01)
[2019-10-14] MEDS: ATROPINE SULFATE 1% OP SOLN 2 ML BTL SL PRN ×2 (17:51→22:26)
[2019-10-15] MEDS: ATROPINE SULFATE 1% OP SOLN 2 ML BTL SL PRN ×2 (02:15→04:39)
[2019-10-15] MEDS ORDERED: ONDANSETRON 4 MG TAB PO PRN (04:30)
[2019-10-15] MEDS ORDERED: ONDANSETRON 4MG/2ML VIAL IV PRN (04:45)
[2019-10-15] MEDS ORDERED: ONDANSETRON 4MG/2ML VIAL IV ONE (06:00)
--- NOTE | 2019-10-15 16:22 | DS.PDOC ---
Discharge Summary General Date of Admission Oct 14, 2019 at 12:12 Date of Discharge 10/15/19 Attending Physician: Christina Balck MD Specialist/Consultants Involve: A Discharge Summary THIS IS A SUMMARY HISTORY OF PRESENT ILLNESS: The patient is a 79-year-old female with past medical history of gout, hypertension, coronary artery disease, hyperlipidemia, hypothyroidism, diabetes mellitus type 2, seizure history who presented to [facility] on 10/14/2019 tripping found unresponsive on the floor at her home at the bottom of the stairs. Her brother was the one who found her at her home. It is unknown as to when she was last seen normal. As per her brother, she was found unresponsive with snoring respirations and decorticate posturing. 911 was called. The patient was noted to have spontaneous respirations and a Joaquina Coma Scale of 1:3:1. The patient was brought to [facility] for further evaluation. Upon arrival to the emergency room the patient was found to be posturing. CT of the head showed a large intraparenchymal hemorrhage. Family was notified and initially wanted to send the patient to [facility] for further stroke treatment. The patient was intubated and started on paralytic medication. The ER attending discussed the case with neurology ICU doctor at [facility], Dr. Denis, who felt this patient would have an overall poor prognosis. The neurologist ICU doctor then spoke with the patient's daughter Lashell, her healthcare proxy. Lashell later made the patient BLANKET WASHER status. The patient's intubation tube was pulled 11:50 AM and made comfort measures. On evaluation of the patient, the patient had decorticate posturing. Her pupils were fixed and dilated at 4 mm. She was unresponsive to painful stimuli, loud focal stimuli. I spoke with her healthcare proxy and daughter Lashell who confirmed again that the patient was to be BLANKET WASHER status, a MOLST form was filled out indicating such. Patient was admitted under inpatient status for hemorrhagic CVA, comfort measures only.' HOSPITAL COURSE: Patient was started on morphine, scopalamine, atropine and ativan upon arrival t o hospital floor. She had two witnessed seizures prior to her arrival to the floor in the ER, where ativan 2 mg was given. No more acute events prior to time of on 10/15/19 at 10:15 AM. PAST MEDICAL HISTORY: 1. Gout 2. HTN 3. Coronary artery disease 4. HLD 5. Hypothyroidism 6. DM type II 7. Seizure history 8. History of kidney cancer PAST SURGICAL HISTORY: 1. Total knee replacement 2. Dual-chamber pacemaker placement 3. Polypectomy 4. Cataract surgery FAMILY HISTORY: Father: Colon cancer. at unknown age Mother: Stroke. in her 90s SOCIAL HISTORY: No known smoking, alcohol or drug history. Currently comfort measures only. ALLERGIES: Please see below. HOME MEDICATIONS: Please see below. PHYSICAL EXAMINATION: CONSTITUTIONAL: Unresponsive EYES: Pupils are fixed and dilated CV: No pulse felt RESPIRATORY: no breath sounds GI: Obese abdomen, soft, nondistended : Bradshaw catheter in place INTEGUMENTARY: Large vertical scar over the right knee, well-healed. Bruise on the left upper extremity shoulder. Intact, no rashes, no lesions, no erythema NEUROLOGIC: Decorticate posturing, pupils fixed and dilated IMAGING: CT head: Large intraparenchymal hemorrhage in the right cerebral hemisphere with subdural component in the right temporal region. Epicenter of the large intraparenchymal hemorrhage is in the temporoparietal region. There is significant associated edema and significant midline shift to the left. Ventricular system is significant compressed with dilatation of the temporal horns of the lateral ventricles. There is evidence for transtentorial, uncal and subfalcine herniation. DIAGNOSES: 1. Intracerebral hemorrhage with brain compression and coma 2. Seizures status post hemorrhagic CVA 3. Acute kidney injury 4. Hyperammonemia 5. Gout 6. Hypertension 7. Coronary artery disease 8. Hypothyroidism 9. Diabetes mellitus type 2 10. Hyperlipidemia Vital Signs/I&Os Vital Signs Date Time Temp Pulse Resp B/P (MAP) Pulse Ox O2 Delivery O2 Flow Rate FiO2 10/14/19 13:00 98.3 60 14 183/81 (115) 100 10/14/19 11:15 30 I&O- Last 24 Hours up to 6 AM 10/15/19 06:00 Intake Total 119 ml Output Total 825 ml Balance -706 ml Discharge Medications Scheduled Allopurinol (Allopurinol) 100 Mg Tab, 200 MG PO DAILY, (Reported) Amiloride HCl (Amiloride HCl) 5 Mg Tablet, 5 MG PO DAILY, (Reported) Amlodipine Besylate (Amlodipine Besylate) 5 Mg Tablet, 5 MG PO DAILY, (Reported) Aspirin (Aspirin EC) 81 Mg Tablet.dr, 81 MG PO DAILY, (Reported) Atorvastatin Calcium (Atorvastatin Calcium) 10 Mg Tablet, 10 MG PO DAILY, (Reported) Calcitriol (Calcitriol) 0.25 Mcg Capsule, 0.25 MCG PO 5XW, (Reported) MON THRU FRI Carvedilol (Carvedilol) 3.125 Mg Tab, 3.125 MG PO BID, (Reported) Levothyroxine Sodium (Levothyroxine Sodium) 75 Mcg Tablet, 75 MCG PO DAILY, (Reported) Sitagliptin Phosphate (Januvia) 25 Mg Tablet, 25 MG PO DAILY, (Reported) Allergies Coded Allergies: No Known Allergies (Verified Allergy, Unknown, 12/25/18) Christina Black MD Oct 15, 2019 16:22
== END 2019-10-15 10:15 | disposition expired | DRG 64 ==
LOC: M ED 09:53 → EDBD 09:53 → EDSEX 09:53 → M ED INP 12:12 → M MSPAV 13:15
PROVIDERS: ADMIT Internal Medicine; ATTEND Internal Medicine
DX: I61.9 Nontraumatic intracerebral hemorrhage, unspecified (principal); G93.5 Compression of brain; G93.6 Cerebral edema; N17.9 Acute kidney failure, unspecified; E72.20 Disorder of urea cycle metabolism, unspecified; R40.20 Unspecified coma; I10 Essential (primary) hypertension; E11.9 Type 2 diabetes mellitus without complications; Z51.5 Encounter for palliative care; G40.909 Epilepsy, unspecified, not intractable, without status epilepticus; E03.9 Hypothyroidism, unspecified; I25.10 Atherosclerotic heart disease of native coronary artery without angina pectoris; M10.9 Gout, unspecified; E78.5 Hyperlipidemia, unspecified; Z85.528 Personal history of other malignant neoplasm of kidney; Z79.899 Other long term (current) drug therapy; Z95.0 Presence of cardiac pacemaker